=== PATIENT | male | born 1985 | race Caucasian/White ===

== ENCOUNTER → 2022-05-08 | Outpatient (REF) | payer OTHER ==
[2022-05-08 11:26] LABS: SEMEN APPEARANCE OPAQUE (OPAQUE)
[2022-05-08 11:27] LABS: SEMEN VISCOSITY LIQUID (LIQUID); SPERM CONCENTRATION 55.8 M/ml (>=15.0); WBC CONCENTRATION <=1 M/ml (<=1 M/ml)
== END ==
LOC: M SMT 11:11
PROVIDERS: ATTEND Physician Assistant
DX: N46.9 Male infertility, unspecified (principal)

== ENCOUNTER 2024-11-14 17:58 | Emergency (ER) | payer BC, OTHER ==
[~2024-11-14] VITALS: Ht 175.3 cm; Wt 114.2 kg
[2024-11-14] MEDS ORDERED: HYDR12.55 PO (18:15)
[2024-11-14] MEDS ORDERED: LOSA25TA13 PO ×2 (18:15)
[2024-11-14 18:17] VITALS: TEMP 100
[2024-11-14] MEDS: NS (Normal Saline) 0.9% 1,000 ML IV ONE (18:54)
[2024-11-14] MEDS: LIDOCAINE VISCOUS 2% SOLN 15 ML UDC PO ONE (18:56)
[2024-11-14] MEDS: MAALOX 30 ML SUSP *UDC PO ONE (18:56)
[2024-11-14] MEDS: UNRESOLVED CLARIFICATION ENTRY XX SCH (19:03)
[2024-11-14 19:10] LABS: BASO # 0.0 10^3/uL (0.0-0.2); BASO % 0.4 % (0.0-1.0); EOS # 0.0 10^3/uL (0.0-0.5); EOS % 0.1 % (0.0-3.0); LYMPH # 1.9 10^3/uL (1.5-5.0); LYMPH % 20.6 % (24.0-44.0); MONO # 0.9 10^3/uL (0.0-0.8); MONO % 9.2 % (2.0-8.0); NEUTROPHILS # 6.4 10^3/uL (1.5-8.5); NEUTROPHILS % 69.3 % (36.0-66.0); PLATELET COUNT, AUTOMATED 340 10^3/uL (150-450)
[2024-11-14] MEDS ORDERED: ISOVUE-370 76% 100 ML VIAL As Ordered ONE (19:24)
[2024-11-14] MEDS: LOSARTAN 25 MG TAB PO ONE (19:30)
[2024-11-14] MEDS ORDERED: HOME MED LIST COMPLETE! XX SCH (19:30)
[2024-11-14 19:31] LABS: ALT/SGPT 30 U/L (7.0-40); AST/SGOT 50 U/L (<34); CALCIUM LEVEL 8.5 MG/DL (8.5-10.1); CARBON DIOXIDE LEVEL 28 MMOL/L (20-31); CHLORIDE LEVEL 102 MMOL/L (98-107); CK-MB VALUE MASS 1.9 NG/ML (<3.6); CPK CREATINE PHOSPHOKINASE 467 U/L (46-171); CREATININE FOR GFR 0.94 MG/DL (0.70-1.30); GLOMERULAR FILTRATION RATE > 90.0 (>60); MB/CK RELATIVE INDEX 0.40 (< OR =4); POTASSIUM SERUM 4.7 MMOL/L (3.5-5.1); SODIUM LEVEL 140 MMOL/L (136-145)
[2024-11-14 21:06] LABS: CK-MB VALUE MASS 1.4 NG/ML (<3.6)
[2024-11-14 21:13] LABS: CPK CREATINE PHOSPHOKINASE 383.0 U/L (46-171); MB/CK RELATIVE INDEX 0.36 (< OR =4)
[2024-11-14 23:50] LABS: SALICYLATE LEVEL < 3.0 MG/DL (<30)
[2024-11-14 23:53] LABS: ETHYL ALCOHOL (ETHANOL) 0.003 % (0.000-0.010)
[2024-11-15 00:13] LABS: AMPHETAMINES LEVEL URINE NEGATIVE (NEGATIVE); BARBITURATES URINE NEGATIVE (NEGATIVE); BENZODIAZEPINES URINE NEGATIVE (NEGATIVE); CANNABINOIDS URINE NEGATIVE (NEGATIVE); COCAINE METABOLITE URINE NEGATIVE (NEGATIVE); METHADONE URINE NEGATIVE (NEGATIVE); OPIATES URINE NEGATIVE (NEGATIVE); PHENCYCLIDINE URINE NEGATIVE (NEGATIVE)
[2024-11-15] MEDS: hydroCHLOROthiazide 25 MG TAB PO ONE (00:19)
[2024-11-15 00:47] VITALS: O2SAT 96
[2024-11-15 03:51] VITALS: BP 198/118
[2024-11-15] MEDS: amLODIPine 5 MG TAB PO ONE (03:51)
[2024-11-15 05:04] VITALS: BP 168/96
== END 2024-11-15 06:59 | disposition home or self-care (01) ==
LOC: M ED 17:58
DX: F51.01 Primary insomnia (principal); I10 Essential (primary) hypertension; Z79.899 Other long term (current) drug therapy
CPT/HCPCS: 36415; 71045; 71275; 74177; 80047; 80048; 80076; 80143; 80307; 82077; 82550; 82553; 83605; 83690; 84443; 84484; 85025; 87486; 87581; 87633; 87798; 93005; 93041; 99285; Q9967

== ENCOUNTER 2024-11-15 17:27 | Emergency (ER) | payer OTHER ==
[~2024-11-15] VITALS: Ht 175.3 cm; Wt 112.5 kg
[~2024-11-15 17:27] MED LIST: HYDR12.55 PO; LOSA25TA13 PO
[2024-11-15 18:13] LABS: BASO # 0.0 10^3/uL (0.0-0.2); BASO % 0.3 % (0.0-1.0); EOS # 0.0 10^3/uL (0.0-0.5); EOS % 0.1 % (0.0-3.0); LYMPH # 1.7 10^3/uL (1.5-5.0); LYMPH % 16.6 % (24.0-44.0); MONO # 0.8 10^3/uL (0.0-0.8); MONO % 8.2 % (2.0-8.0); NEUTROPHILS # 7.4 10^3/uL (1.5-8.5); NEUTROPHILS % 74.6 % (36.0-66.0); PLATELET COUNT, AUTOMATED 333 10^3/uL (150-450)
[2024-11-15 18:30] LABS: INR 0.92
[2024-11-15 18:51] LABS: ALT/SGPT 30 U/L (7.0-40); AST/SGOT 28 U/L (<34); CALCIUM LEVEL 9.3 MG/DL (8.5-10.1); CARBON DIOXIDE LEVEL 28 MMOL/L (20-31); CHLORIDE LEVEL 99 MMOL/L (98-107); CK-MB VALUE MASS 1.7 NG/ML (<3.6); CPK CREATINE PHOSPHOKINASE 409 U/L (46-171); CREATININE FOR GFR 0.95 MG/DL (0.70-1.30); FREE T4 1.20 NG/DL (0.89-1.76); GLOMERULAR FILTRATION RATE > 90.0 (>60); MB/CK RELATIVE INDEX 0.41 (< OR =4); POTASSIUM SERUM 3.4 MMOL/L (3.5-5.1); SODIUM LEVEL 138 MMOL/L (136-145)
[2024-11-15 19:55] LABS: CK-MB VALUE MASS 1.5 NG/ML (<3.6)
[2024-11-15 19:57] LABS: CPK CREATINE PHOSPHOKINASE 381.0 U/L (46-171); MB/CK RELATIVE INDEX 0.39 (< OR =4)
[2024-11-15 20:20] VITALS: TEMP 98.7; O2SAT 98
[2024-11-15 20:32] VITALS: BP 148/86
== END 2024-11-15 20:43 | disposition home or self-care (01) ==
LOC: M ED 17:27
DX: R07.9 Chest pain, unspecified (principal); I10 Essential (primary) hypertension; Z79.899 Other long term (current) drug therapy

== ENCOUNTER 2024-11-15 21:23 | Emergency (ER) | payer OTHER ==
[~2024-11-15] VITALS: Ht 175.3 cm; Wt 112.3 kg
[2024-11-15 22:07] LABS: PLATELET COUNT, AUTOMATED 363 10^3/uL (150-450)
[2024-11-15 22:24] LABS: AMPHETAMINES LEVEL URINE NEGATIVE (NEGATIVE); BARBITURATES URINE NEGATIVE (NEGATIVE)
[2024-11-15 22:25] LABS: BENZODIAZEPINES URINE NEGATIVE (NEGATIVE); CANNABINOIDS URINE NEGATIVE (NEGATIVE); COCAINE METABOLITE URINE NEGATIVE (NEGATIVE); METHADONE URINE NEGATIVE (NEGATIVE); OPIATES URINE NEGATIVE (NEGATIVE); PHENCYCLIDINE URINE NEGATIVE (NEGATIVE)
[2024-11-15 22:27] LABS: ETHYL ALCOHOL (ETHANOL) < 0.003 % (0.000-0.010)
[2024-11-15 22:28] LABS: SALICYLATE LEVEL < 3.0 MG/DL (<30)
[2024-11-15 22:44] LABS: ALT/SGPT 28 U/L (7.0-40); AST/SGOT 26 U/L (<34); CALCIUM LEVEL 9.2 MG/DL (8.5-10.1); CARBON DIOXIDE LEVEL 29 MMOL/L (20-31); CHLORIDE LEVEL 98 MMOL/L (98-107); CREATININE FOR GFR 0.93 MG/DL (0.70-1.30); GLOMERULAR FILTRATION RATE > 90.0 (>60); POTASSIUM SERUM 3.4 MMOL/L (3.5-5.1); SODIUM LEVEL 135 MMOL/L (136-145)
[2024-11-15] MEDS: LOSARTAN 50 MG TABLET PO ONE (23:27)
[2024-11-16] MEDS: POTASSIUM CHLORIDE 10% LIQ 20MEQ/15ML UDC PO ONE (00:16)
[2024-11-16] MEDS: LORazepam 1 MG TAB PO STA (01:19)
[2024-11-16] MEDS ORDERED: HOME MED LIST COMPLETE! XX SCH (06:35)
[2024-11-16 09:51] VITALS: BP 165/99
[2024-11-16] MEDS: LOSARTAN 25 MG TAB PO ONE (09:51)
[2024-11-16] MEDS: hydroCHLOROthiazide 25 MG TAB PO ONE (09:51)
[2024-11-16] MEDS ORDERED: PILL CUTTER 1 EACH XX ONE (09:56)
[2024-11-17] MEDS: hydroCHLOROthiazide 25 MG TAB PO SCH (08:06)
[2024-11-17] MEDS: LOSARTAN 25 MG TAB PO SCH (08:07)
[2024-11-17] MEDS ORDERED: hydroCHLOROthiazide 25 MG TAB PO ONE (09:00)
[2024-11-17] MEDS ORDERED: LOSARTAN 25 MG TAB PO ONE (09:00)
[2024-11-17 15:39] VITALS: BP 162/88; TEMP 98.1; O2SAT 96
== END 2024-11-17 15:48 | disposition home or self-care (01) ==
LOC: M ED 21:23
DX: F23 Brief psychotic disorder (principal); I10 Essential (primary) hypertension; F84.0 Autistic disorder; Z79.899 Other long term (current) drug therapy

== ENCOUNTER 2024-11-17 23:04 | Emergency (ER) | payer BC, OTHER ==
[~2024-11-17] VITALS: Ht 175.3 cm; Wt 102.3 kg
[2024-11-17] MEDS: MIDAZOLAM 5 MG/ML 1 ML VIAL IM ONE (23:44)
[2024-11-17] MEDS: diphenhydrAMINE 50 MG/ML VIAL IM STA (23:44)
[2024-11-17] MEDS: HALOPERIDOL LACTATE 5 MG/ML VIAL IM STA (23:44)
[2024-11-18 00:17] LABS: BASO # 0.1 10^3/uL (0.0-0.2); BASO % 0.4 % (0.0-1.0); EOS # 0.0 10^3/uL (0.0-0.5); EOS % 0.3 % (0.0-3.0); LYMPH # 2.9 10^3/uL (1.5-5.0); LYMPH % 24.7 % (24.0-44.0); MONO # 1.1 10^3/uL (0.0-0.8); MONO % 9.2 % (2.0-8.0); NEUTROPHILS # 7.7 10^3/uL (1.5-8.5); NEUTROPHILS % 65.1 % (36.0-66.0); PLATELET COUNT, AUTOMATED 387 10^3/uL (150-450)
[2024-11-18 00:29] LABS: ETHYL ALCOHOL (ETHANOL) 0.008 % (0.000-0.010)
[2024-11-18 00:31] LABS: ALT/SGPT 32 U/L (7.0-40); AST/SGOT 22 U/L (<34); CALCIUM LEVEL 9.3 MG/DL (8.5-10.1); CARBON DIOXIDE LEVEL 27 MMOL/L (20-31); CHLORIDE LEVEL 98 MMOL/L (98-107); CREATININE FOR GFR 1.04 MG/DL (0.70-1.30); GLOMERULAR FILTRATION RATE > 90.0 (>60); POTASSIUM SERUM 3.6 MMOL/L (3.5-5.1); SALICYLATE LEVEL < 3.0 MG/DL (<30); SODIUM LEVEL 137 MMOL/L (136-145)
[2024-11-18 00:46] LABS: AMPHETAMINES LEVEL URINE NEGATIVE (NEGATIVE); BARBITURATES URINE NEGATIVE (NEGATIVE); BENZODIAZEPINES URINE NEGATIVE (NEGATIVE); CANNABINOIDS URINE NEGATIVE (NEGATIVE); COCAINE METABOLITE URINE NEGATIVE (NEGATIVE); METHADONE URINE NEGATIVE (NEGATIVE); OPIATES URINE NEGATIVE (NEGATIVE); PHENCYCLIDINE URINE NEGATIVE (NEGATIVE)
[2024-11-18] MEDS ORDERED: LORazepam 1 MG TAB PO PRN (05:40)
[2024-11-18] MEDS ORDERED: HALOPERIDOL 5 MG TAB PO PRN (05:40)
[2024-11-18] MEDS ORDERED: traZODone 50 MG TAB PO PRN (05:40)
[2024-11-18] MEDS ORDERED: MOM 30 ML SUSPENSION UDC PO PRN (05:40)
[2024-11-18] MEDS ORDERED: MAALOX 30 ML SUSP *UDC PO PRN (05:40)
[2024-11-18] MEDS ORDERED: IBUPROFEN 400 MG TAB PO PRN (05:40)
[2024-11-18] MEDS ORDERED: ACETAMINOPHEN 325 MG TAB PO PRN (05:40)
[2024-11-18] MEDS ORDERED: HOME MED LIST COMPLETE! XX SCH (08:40)
[2024-11-18] MEDS: LOSARTAN 25 MG TAB PO SCH (15:59)
[2024-11-19 13:33] VITALS: BP 154/106
[2024-11-19] MEDS: METOPROLOL TART 12.5 MG PER 1/2 TAB PO ONE (13:33)
[2024-11-19 16:25] VITALS: BP 154/99; TEMP 98; O2SAT 99
== END 2024-11-19 16:32 | disposition home or self-care (01) ==
LOC: M ED 23:04 → M ED INP 11-18 05:39 → UNDOADMIN 11-18 05:39 → UNDODISIN 11-19 16:30
DX: F41.0 Panic disorder [episodic paroxysmal anxiety] (principal); R00.0 Tachycardia, unspecified; I10 Essential (primary) hypertension; F84.5 Asperger's syndrome; Z79.899 Other long term (current) drug therapy
CPT/HCPCS: 70450; 80048; 80076; 80143; 80307; 82077; 82140; 84443; 85025; 93005; 93041; 94760; 96372; 99285; J1200; J1630; J2250

== ENCOUNTER 2024-11-20 01:55 | Inpatient (IN) | payer OTHER ==
[~2024-11-20] VITALS: Ht 175.3 cm; Wt 109.9 kg
[2024-11-20 04:34] LABS: PLATELET COUNT, AUTOMATED 346 10^3/uL (150-450)
[2024-11-20 05:07] LABS: AMPHETAMINES LEVEL URINE NEGATIVE (NEGATIVE); BARBITURATES URINE NEGATIVE (NEGATIVE); BENZODIAZEPINES URINE NEGATIVE (NEGATIVE); CANNABINOIDS URINE NEGATIVE (NEGATIVE); COCAINE METABOLITE URINE NEGATIVE (NEGATIVE); ETHYL ALCOHOL (ETHANOL) < 0.003 % (0.000-0.010); METHADONE URINE NEGATIVE (NEGATIVE); OPIATES URINE NEGATIVE (NEGATIVE); PHENCYCLIDINE URINE NEGATIVE (NEGATIVE)
[2024-11-20 05:08] LABS: SALICYLATE LEVEL < 3.0 MG/DL (<30)
[2024-11-20 05:14] LABS: ALT/SGPT 56 U/L (7.0-40); AST/SGOT 38 U/L (<34); CALCIUM LEVEL 9.0 MG/DL (8.5-10.1); CARBON DIOXIDE LEVEL 30 MMOL/L (20-31); CHLORIDE LEVEL 102 MMOL/L (98-107); CREATININE FOR GFR 1.19 MG/DL (0.70-1.30); GLOMERULAR FILTRATION RATE 80.7 (>60); POTASSIUM SERUM 3.7 MMOL/L (3.5-5.1); SODIUM LEVEL 138 MMOL/L (136-145)
[2024-11-20] MEDS ORDERED: HOME MED LIST COMPLETE! XX SCH (08:00)
[2024-11-20] MEDS ORDERED: MOM 30 ML SUSPENSION UDC PO PRN (10:35)
[2024-11-20] MEDS ORDERED: MAALOX 30 ML SUSP *UDC PO PRN (10:35)
[2024-11-20] MEDS ORDERED: ACETAMINOPHEN 325 MG TAB PO PRN (10:35)
[2024-11-20 11:27] VITALS: BP 132/85; TEMP 98; O2SAT 99
[2024-11-20 15:29] VITALS: BP 120/86; TEMP 97.8; O2SAT 100
[2024-11-20] MEDS: traZODone 50 MG TAB PO PRN (21:01)
[2024-11-21 06:46] VITALS: BP 135/90; TEMP 97; O2SAT 100
[2024-11-21] MEDS: FLUZONE VACCINE TRI PF(25-26) 0.5ML SYRINGE IM.IMMUN ONE (08:01)
[2024-11-21] MEDS: ESCITALOPRAM OXALATE 5 MG TABLET PO SCH (09:57)
[2024-11-21] MEDS: LOSARTAN 25 MG TAB PO SCH (09:59)
[2024-11-21 11:53] VITALS: BP 137/88; O2SAT 100
[2024-11-21] MEDS: LORazepam 0.5 MG TAB PO PRN (12:47)
[2024-11-21 15:05] VITALS: BP 137/81; TEMP 97.6; O2SAT 96
[2024-11-22 05:56] VITALS: BP 141/82; TEMP 97.9; O2SAT 99
[2024-11-22 14:43] VITALS: BP 122/80; TEMP 97; O2SAT 98
[2024-11-23 06:55] VITALS: BP 148/76; TEMP 98; O2SAT 100
[2024-11-23 08:09] VITALS: BP 135/87
[2024-11-23 16:36] VITALS: BP 133/88; TEMP 97.5; O2SAT 99
[2024-11-24 06:35] VITALS: BP 127/60; TEMP 97.2; O2SAT 99
[2024-11-24 09:36] VITALS: BP 135/79
[2024-11-24] MEDS ORDERED: LORazepam 0.5 MG TAB PO PRN (15:35)
[2024-11-24 16:34] VITALS: BP 125/74; TEMP 97.6; O2SAT 98
[2024-11-25 06:29] VITALS: BP 141/71; TEMP 98.1; O2SAT 97
[2024-11-25 08:05] VITALS: BP 152/90
[2024-11-25] MEDS: ESCITALOPRAM OXALATE 10 MG TABLET PO SCH (08:07)
[2024-11-25 14:53] VITALS: BP 145/93; TEMP 97.9; O2SAT 96
[2024-11-26 06:26] VITALS: BP 141/84; TEMP 97.1; O2SAT 99
[2024-11-26 14:50] VITALS: BP 147/96; TEMP 97.7; O2SAT 99
[2024-11-26] MEDS: IBUPROFEN 400 MG TAB PO PRN (17:59)
[2024-11-27 06:24] VITALS: BP 167/89; TEMP 97.3; O2SAT 98
[2024-11-27 08:09] VITALS: BP 130/87
[2024-11-27] MEDS ORDERED: TRAZ-252 PO (08:29)
[2024-11-27] MEDS ORDERED: HYDR-3363 PO (08:29)
[2024-11-27] MEDS ORDERED: LEXA1TAB PO (08:29)
== END 2024-11-27 11:34 | disposition home or self-care (01) | DRG 756 ==
LOC: M ED 01:55 → M ED INP 10:31 → M PSY 11:23
PROVIDERS: ADMIT General Practice; ATTEND General Practice
DX: F41.1 Generalized anxiety disorder (principal); M62.82 Rhabdomyolysis; R45.851 Suicidal ideations; F41.0 Panic disorder [episodic paroxysmal anxiety]; F39 Unspecified mood [affective] disorder; G47.00 Insomnia, unspecified; E66.9 Obesity, unspecified; F84.5 Asperger's syndrome; Z65.3 Problems related to other legal circumstances